=== PATIENT | male | born 1950 | race Caucasian/White ===

== ENCOUNTER 2017-02-20 15:50 | Observation (INO) ==
--- NOTE | 2017-02-20 17:46 | Emergency Department Note ---
Disposition Clinical Impression: Ulceration Cellulitis Qualifiers: Site of cellulitis: extremity Site of cellulitis of extremity: lower extremity Laterality: right Qualified Code(s): L03.115 - Cellulitis of right lower limb Disposition: Admitted As Inpatient Condition: Undetermined Time of Disposition: 19:04 Wound/Laceration HPI - General Chief Complaint: ED Wound/Laceration Stated Complaint: RLE wound Time Seen by Provider: 02/20/17 17:18 Source: patient Mode of arrival: wheelchair Limitations: no limitations Nursing Notes Reviewed: Yes Vital Signs Reviewed: Yes - History of Present Illness HPI Narrative: 66-year-old male with history of chronic wound on right lower extremity arrives [facility] emergency department after being instructed to come to [facility] emergency department for evaluation by the wound clinic. The patient states that his wound of his right lower extremity has worsened in pain as well as developed a black necrotic color to it. The patient states he is experiencing more bruising to his right lower extremity. The patient states that he does not typically feel any pain in his right lower extremity. Onset (ago): day(s) (1) Extremity Location: Right: lower leg, ankle, foot Place: home Associated symptoms: Reports: loss of feeling/numbness Pain Severity: moderate, severe Pain Scale: 6 Treatments prior to arrival: bandage - Related Data Home Medications Medication Instructions Recorded Confirmed No Known Home Drugs 02/20/17 02/20/17 Allergies Allergy/AdvReac Type Severity Reaction Status Date / Time cephalexin [From Keflex] AdvReac See Verified 02/08/17 08:23 Comments All systems ED: reviewed and negative except as stated. Constitutional: Denies: fever, chills, weakness, weight change Cardiovascular: Denies: chest pain, palpitations, dyspnea on exertion, edema, syncope Respiratory: Denies: cough, dyspnea, wheezes, hemoptysis, stridor Gastrointestinal: Denies: abdominal pain, nausea, vomiting, diarrhea, constipation, hematemesis, melena, hematochezia Genitourinary: Denies: urgency, dysuria, frequency, hematuria Musculoskeletal: Denies: back pain, neck pain, arthralgia, myalgia Integumentary: Reports: lesions (Right ankle). Denies: rash, abrasion Neurological: Denies: headache, weakness, numbness, paresthesias, confusion, abnormal gait, vertigo Past Medical History - Past Medical History Attestation: Yes The following information was validated with the patient. Source: patient Medical history: Reports: other Surgical history: Reports: orthopedic, other Psychiatric history: Reports: no psych history - Social History Smoking Status: Never smoker Smokeless Tobacco Status: Yes (chew x 40 + years) Alcohol use: Reports: none Drug use: Reports: none Physical Exam - General Limitations: no limitations General appearance: alert, in no apparent distress - Head Head exam: atraumatic, normocephalic, normal inspection - Neck Neck exam: Present: normal inspection, full ROM, trachea midline - Chest Chest inspection: Present: normal inspection, symmetric chest wall rise - Respiratory Respiratory exam: Present: normal lung sounds bilaterally - Cardiovascular Cardiovascular exam: Present: regular rate, normal rhythm, normal heart sounds - Extremities Exam Extremities exam: Present: other (6 x 11 cm chronic ulceration with granulation tissue and necrotic tissue at the base with serious and mild purulent discharge noted. Moderate erythema surrounding chronic ulceration with tenderness to the ankle associated with wound.) Course - Consultations Consultation #1: Spoke with Dr. Ricci in podiatry and recommended admission an IV vancomycin if worsening appearance. Time: 18:57 Vital Signs Temperature 98 F 02/20/17 16:03 Pulse Rate 75 02/20/17 16:03 Respiratory Rate 16 02/20/17 16:03 Blood Pressure 152/59 02/20/17 16:03 O2 Sat by Pulse Oximetry 96 02/20/17 16:03 Temperature 98.4 F 02/21/17 15:56 Pulse Rate 84 02/21/17 15:56 Respiratory Rate 18 02/21/17 15:56 Blood Pressure 137/67 02/21/17 15:56 O2 Sat by Pulse Oximetry 96 02/21/17 15:56 Oxygen Delivery Oxygen Delivery Room Air Wound/Laceration - MDM Narrative Medical decision making narrative: Experiencing worsening right lower extremity wound with worsening necrosis of discharge. After speaking with podiatry with symptoms, they recommended admission and administration of IV vancomycin if symptomatically worse. We will admit the patient at this time, accepted by Stephon Ellis NP. - Medical Records Medical records reviewed: Yes I reviewed the patient's medical records. - Lab Data Lab results reviewed: Yes I reviewed the patient's lab results. Result diagrams: 02/21/17 06:10 02/21/17 06:10 Lab Results 02/20/17 02/20/17 02/20/17 Range/Units 17:57 17:57 17:57 WBC 3.0 L (4.3-11.1) K/mcL RBC 3.52 L (4.19-5.50) M/mcL Hgb 10.2 L (12.9-16.9) g/dL Hct 32.6 L (37.5-50.1) % MCV 92.6 (83.0-100.0) fL MCH 29.0 (28.0-33.3) pg MCHC 31.3 L (31.6-35.5) g/dL RDW 15.4 H (11.5-14.5) % Plt Count 55 L (140-400) K/mcL MPV 9.7 (9.4-12.4) fL Immature Gran % 0.3 (0-4) % Seg Neutrophils % 54.6 % Lymphocytes % 30.6 % Monocytes % 10.1 % Eosinophils % 3.7 % Basophils % 0.7 % Neutrophils # 1.6 (1.6-8.9) K/mcL Lymphocytes # 0.9 (0.6-4.6) K/mcL Monocytes # 0.3 (0.0-1.3) K/mcL Eosinophils # 0.1 (0.0-0.6) K/mcL Basophils # 0.0 (0.0-0.2) K/mcL Immature Plt Fraction 1.3 (1.1-6.1) % ESR 22 H (0-10) mm/hr Sodium 139 (136-145) mEq/L Potassium 3.7 (3.5-4.5) mEq/L Chloride 109 (98-109) mEq/L Carbon Dioxide 26 (19-29) mEq/L BUN 9 (8-26) mg/dL Creatinine 0.69 L (0.72-1.25) mg/dL Est GFR ( Amer) > 60 (> 60) Est GFR (Non-Af Amer) > 60 (> 60) BUN/Creatinine Ratio 13 (6-26) Glucose 86 (70-99) mg/dL Calculated Osmolality 286 (280-300) Calcium 8.1 L (8.6-10.8) mg/dL C-Reactive Protein (Less than 5) mg/L 02/20/17 Range/Units 17:57 WBC (4.3-11.1) K/mcL RBC (4.19-5.50) M/mcL Hgb (12.9-16.9) g/dL Hct (37.5-50.1) % MCV (83.0-100.0) fL MCH (28.0-33.3) pg MCHC (31.6-35.5) g/dL RDW (11.5-14.5) % Plt Count (140-400) K/mcL MPV (9.4-12.4) fL Immature Gran % (0-4) % Seg Neutrophils % % Lymphocytes % % Monocytes % % Eosinophils % % Basophils % % Neutrophils # (1.6-8.9) K/mcL Lymphocytes # (0.6-4.6) K/mcL Monocytes # (0.0-1.3) K/mcL Eosinophils # (0.0-0.6) K/mcL Basophils # (0.0-0.2) K/mcL Immature Plt Fraction (1.1-6.1) % ESR (0-10) mm/hr Sodium (136-145) mEq/L Potassium (3.5-4.5) mEq/L Chloride (98-109) mEq/L Carbon Dioxide (19-29) mEq/L BUN (8-26) mg/dL Creatinine (0.72-1.25) mg/dL Est GFR ( Amer) (> 60) Est GFR (Non-Af Amer) (> 60) BUN/Creatinine Ratio (6-26) Glucose (70-99) mg/dL Calculated Osmolality (280-300) Calcium (8.6-10.8) mg/dL C-Reactive Protein 10 H (Less than 5) mg/L - Radiology Data Radiology results reviewed: Yes I reviewed the patient's radiology results. Attestation Statement - Attestation Attestation: I, Dallin Hernandez, examined this patient and my medical decision-making was reviewed with the BOILER [employer]END[employer] SUPERVISOR/PA/Advanced Practice Nurse/Resident Physician. I agree with the documented findings, disposition and treatment plan as described except to the extent set forth below. 66-year-old male presents to emergency department with acute worsening of his chronic lower extremity wound. Patient states he is not emergency department by the wound clinic for further evaluation and likely admission. Patient states that it has increased warmth, erythema and a foul smell coming from the wound. He also noticed that it had drainage of yellow green discharge. CT of the extremity did not show evidence of osteomyelitis. Resident spoke with the oss architect who agreed with plan for admission to the hospital. He was started on antibiotics in the emergency department.
[2017-02-20 18:05] LABS: Basophils % 0.7 %; Immature Granulocytes % 0.3 % (0-4)
[2017-02-20 18:07] LABS: Eosinophils # 0.1 K/mcL (0.0-0.6); Eosinophils % 3.7 %; Hematocrit 32.6 % (37.5-50.1); Hemoglobin 10.2 g/dL (12.9-16.9); Immature Platelets 1.3 % (1.1-6.1); Lymphocytes # 0.9 K/mcL (0.6-4.6); Lymphocytes % 30.6 %; Mean Corpuscular HGB Conc 31.3 g/dL (31.6-35.5); Mean Corpuscular Volume 92.6 fL (83.0-100.0); Mean Platelet Volume 9.7 fL (9.4-12.4); Monocytes # 0.3 K/mcL (0.0-1.3); Monocytes % 10.1 %; Neutrophils # 1.6 K/mcL (1.6-8.9); Red Blood Count 3.52 M/mcL (4.19-5.50); Red Cell Distribution Width 15.4 % (11.5-14.5); Segmented Neutrophils % 54.6 %
[2017-02-20 18:14] LABS: Platelet Count 55 K/mcL (140-400)
[2017-02-20 18:16] LABS: BUN/Creatinine Ratio 13 (6-26); Blood Urea Nitrogen 9 mg/dL (8-26); Calcium 8.1 mg/dL (8.6-10.8); Carbon Dioxide 26 mEq/L (19-29); Chloride 109 mEq/L (98-109); Glucose 86 mg/dL (70-99); Osmolality,Calculated 286 (280-300); Potassium 3.7 mEq/L (3.5-4.5); Sodium 139 mEq/L (136-145); eGFR For African Americans > 60 (> 60); eGFR For Non-African Americans > 60 (> 60)
[2017-02-20] MEDS ORDERED: Vancomycin 1,000 MG in D5% in Water 250 ML IVPB ONE (18:51)
[2017-02-20] MEDS ORDERED: *HR* Morphine 2 MG/ML SYRINGE IVP PRN (23:08)
[2017-02-20] MEDS ORDERED: *HR* HYDROcodone/Acet 5/325 mg TABLET PO PRN (23:08)
[2017-02-20] MEDS ORDERED: Ondansetron 4 MG/2 ML VIAL IVP PRN (23:08)
[2017-02-20] MEDS ORDERED: Naloxone 0.4 MG/ML INJ IVP PRN (23:08)
--- NOTE | 2017-02-20 23:39 | Internal Med History&Physical ---
Date of Encounter: 02/20/17 Time of Encounter: 22:50 Assessment and Plan (1) Cellulitis Current visit: Yes Status: Acute RLE infected ulcer will start with empiric IV abx (vanco and zosyn) podiatry consultation requested daily wound care f/u culture reports pain control as needed Qualifiers: Site of cellulitis: extremity Site of cellulitis of extremity: lower extremity Laterality: right Qualified Code(s): L03.115 - Cellulitis of right lower limb (2) Chronic venous hypertension with ulcer Current visit: Yes Status: Chronic will obtain KACEY studies given the recurrent ulcers and poor healing Qualifiers: Laterality: bilateral Qualified Code(s): I87.313 - Chronic venous hypertension (idiopathic) with ulcer of bilateral lower extremity (3) DVT prophylaxis Current visit: Yes Status: Acute Heparin SQ (4) Morbid obesity Current visit: Yes Status: Chronic Internal Medicine - H&P: HPI Chief complaint: sent from wound care clinic for infected right ankle wound Admitted From: Home Plans for Post Hospital Care: Home History of present illness: Mr. Landaverde is a 66 year old male with PMH of chronic venous stasis who is sent to the ER from wound care clinic for concern for infected RLE ulcer. Patient reports of having b/l LE edema since the age of 17. He follows with Dr. Grayson for this chronic right distal leg/ankle ulcer and states lately it has been hurting and he was sent to the ER from wound care clinic. Denies any other medical history and does not take any medications at home. At this time he denies any pain or discomfort. Denies any pain, fever, or chills Social history: Chews Tobacco, no cigarette use reported Code status: Full code Past Med Surg Social Fam HX - Past Medical History Medical history: venous stasis Psychiatric history: no psych history - Past Surgical History Surgical History: orthopedic, other - Social History Smoking Status: Never smoker Smokeless Tobacco Status: Yes (chew x 40 + years) Alcohol use: none Drug use: none - Family History Father Living Status: Hx Family Cancer: Yes (lung) Hx Family Neurologic Disorders: Yes (epilepsy) Internal Medicine - H&P: Meds No Known Home Drugs 02/20/17 [History] 3 Allergy/AdvReac Type Severity Reaction Status Date / Time cephalexin [From Keflex] AdvReac See Verified 02/08/17 08:23 Comments All Systems PM: A 10-system review of systems was performed and is negative for pertinent findings except as documented above in the HPI. - Constitutional Constitutional: as per HPI - Constitutional Vitals: Temp Pulse Resp BP Pulse Ox 97.7 F 77 14 137/69 98 02/20/17 23:21 02/20/17 23:21 02/20/17 23:21 02/20/17 23:21 02/20/17 23:21 General appearance: Present: A&O X 3, morbidly obese, no acute distress, answers questions appropriately - Head Head exam: Present: atraumatic, normocephalic - Eye Eye exam: Present: conjuntiva pink, sclera anicteric - Respiratory Respiratory exam: Present: CTAB. Absent: respiratory distress, wheezes - Cardiovascular Cardiovascular exam: Present: RRR, +S1, +S2. Absent: diastolic murmur, gallop, rubs, systolic murmur - GI/Abdominal GI/Abdominal exam: Present: normal bowel sounds, soft, no peritoneal signs. Absent: distended, tenderness - Extremities Exam Extremities exam: Present: warm, radial pulses palpable and symmetrical. Absent : calf tenderness Additional comments: b/l LE edema chronic venous stasis in b/l LE right ankle ulcer-dressing intact - Neurological Exam Neurological exam: Present: alert, oriented X3 - Psychiatric Psychiatric exam: Present: normal affect, normal mood Internal Med - H&P Results - Labs CBC & Chem 7: 02/20/17 17:57 02/20/17 17:57
[2017-02-21] MEDS ORDERED: Vancomycin 1,000 MG in D5% in Water 250 ML IVPB ONE
[2017-02-21] MEDS: Piperacillin/Tazobactam 3.375 GM in D5% in Water (Mini-Bag+) 100 ML IVPB SCH ×3 (00:38→16:09)
[2017-02-21] MEDS ORDERED: *HR* Heparin 5,000 UNIT/ML VIAL SQ SCH (06:00)
[2017-02-21] MEDS ORDERED: Vancomycin 1,000 MG in D5% in Water 250 ML IVPB SCH (06:00)
[2017-02-21 06:43] LABS: BUN/Creatinine Ratio 13 (6-26); Blood Urea Nitrogen 9 mg/dL (8-26); Carbon Dioxide 25 mEq/L (19-29); Chloride 109 mEq/L (98-109); Glucose 101 mg/dL (70-99); Magnesium 1.6 mg/dL (1.6-2.6); Osmolality,Calculated 289 (280-300); Phosphorous 2.7 mg/dL (2.3-4.7); Potassium 4.1 mEq/L (3.5-4.5); Sodium 140 mEq/L (136-145); eGFR For African Americans > 60 (> 60); eGFR For Non-African Americans > 60 (> 60)
[2017-02-21 06:48] LABS: Basophils % 0.8 %; Red Cell Distribution Width 15.6 % (11.5-14.5)
[2017-02-21 06:50] LABS: Eosinophils # 0.1 K/mcL (0.0-0.6); Eosinophils % 4.5 %; Hemoglobin 10.1 g/dL (12.9-16.9); Immature Platelets 1.6 % (1.1-6.1); Lymphocytes % 35.8 %; Mean Corpuscular HGB Conc 32.6 g/dL (31.6-35.5); Mean Corpuscular Hemoglobin 30.1 pg (28.0-33.3); Mean Corpuscular Volume 92.5 fL (83.0-100.0); Mean Platelet Volume 10.3 fL (9.4-12.4); Monocytes # 0.3 K/mcL (0.0-1.3); Monocytes % 12.5 %; Red Blood Count 3.35 M/mcL (4.19-5.50); Segmented Neutrophils % 46.4 %
[2017-02-21 07:16] LABS: Neutrophils # 1.3 K/mcL (1.6-8.9); Platelet Count 57 K/mcL (140-400)
[2017-02-21] MEDS ORDERED: Vancomycin 2,000 MG in D5% in Water 500 ML IVPB SCH (12:00)
--- NOTE | 2017-02-21 15:37 | Internal Med Progress Note ---
Date of Encounter: 02/21/17 Time of Encounter: 15:46 - Assessment and plan (1) Cellulitis Current Visit: Yes Status: Acute Assessment and plan: Hx chronic bilateral lymphedema since the age of 17 and now with chronic nonhealing right lower extremity venous stasis ulcer. Was sent to ER from wound care clinic for concern of cellulitis to right lower leg. Lower extremity CT with diffuse, severe edema of right lower leg concerning for chronic cellulitis or lymphedema. Continue IV Vanco, Zosyn started in ED. Wound cx pending. Podiatry consulted. Bilateral lower extreme Dopplers pending. Qualifiers: Site of cellulitis: extremity Site of cellulitis of extremity: lower extremity Laterality: right Qualified Code(s): L03.115 - Cellulitis of right lower limb (2) Chronic venous hypertension with ulcer Current Visit: Yes Status: Chronic Assessment and plan: Per history. Follows with Dr. Grayson. Lower extremity CT as noted above. Bilateral KACEY studies pending. Qualifiers: Laterality: bilateral Qualified Code(s): I87.313 - Chronic venous hypertension (idiopathic) with ulcer of bilateral lower extremity (3) Pancytopenia Current Visit: Yes Status: Acute Assessment and plan: With leukopenia, anemia and thrombocytopenia. No previous history per patient. Etiology unknown. Repeat CBC, peripheral blood smear (4) Morbid obesity Current Visit: Yes Status: Chronic Assessment and plan: per hx. BMI 47. Lifestyle modifications encouraged. Hgb A1c, lipid panel pending (5) DVT prophylaxis Current Visit: Yes Status: Acute - Subjective Interval history: Seen and examined at bedside. He says he feels about the same. Says right lower leg was depleted at cook morning office on Monday, he went back for follow- up yesterday and there was no change so he was advised to go to the ER. No fevers, no chills. Denies chest pain no shortness of breath. - Constitutional Vitals: Temp Pulse Resp BP Pulse Ox 98.1 F 72 17 154/63 96 02/21/17 08:43 02/21/17 08:43 02/21/17 08:43 02/21/17 08:43 02/21/17 10:29 General appearance: Present: A&O X 3, morbidly obese, no acute distress, answers questions appropriately - Head Head exam: Present: atraumatic, normocephalic - Eye Eye exam: Present: PERRL, conjuntiva pink, sclera anicteric Pupils: Present: PERRL - Neck Neck exam general surgery: Present: supple, trachea midline. Absent: lymphadenopathy - Respiratory Respiratory exam: Present: CTAB. Absent: accessory muscle use, rales, rhonchi, wheezes - Cardiovascular Cardiovascular exam: Present: RRR, +S1, +S2. Absent: diastolic murmur, gallop, rubs, systolic murmur - GI/Abdominal GI/Abdominal exam: Present: normal bowel sounds, soft, no peritoneal signs. Absent: distended, tenderness - Extremities Exam Extremities exam: Present: pedal edema, warm, radial pulses palpable and symmetrical. Absent: calf tenderness, cyanotic Additional comments: Bilateral lower extremity with gross/lymphedema. And purplish discoloration. Right lower extremity with wound (area dressed with dressing clean dry and intact, not assessed) - Neurological Exam Neurological exam: Present: CN II-XII intact, oriented X3, no focal deficits. Absent: pronater drift, facial droop, speech deficit - Skin Skin exam: Present: dry, intact Internal Medicine: Result - Labs CBC & Chem 7: 02/21/17 06:10 02/21/17 06:10 Labs: Short CBC 02/21/17 Range/Units 06:10 WBC 2.7 L (4.3-11.1) K/mcL Hgb 10.1 L (12.9-16.9) g/dL Hct 31.0 L (37.5-50.1) % Plt Count 57 L (140-400) K/mcL Neutrophils # 1.3 L (1.6-8.9) K/mcL BMP 02/21/17 06:10 Sodium 140 Potassium 4.1 Chloride 109 Carbon Dioxide 25 BUN 9 Creatinine 0.72 Glucose 101 H Calcium 8.0 L Consult Discharge Plan - Plan Referrals: NONE,PCP [Primary Care Provider] -
--- NOTE | 2017-02-21 15:53 | Arterial Study Report ---
LE Arterial Physiologic Study Patient Name:Meliton Landaverde Order Number:[id number] Procedure Date:02/21/2017 Date:1950ge:66 yrs Gender:Male Lt BP:122 / mmHg Rt.BP:112 / mmHgHeart Rate: Location:[facility] Room #: 3A42 Multimedia Author:Marissa Wallace RDCS Referring MD:Natalya Ring MD Reading MD:Lamont Waite MD , FACS Primary Indications:r/o PVD Impressions: 1) Bilateral lower extremities waveform demonstrates normal hemodynamics. 2) Bilateral Ankle Brachial Index is normal. 3) Overall Impression: Arterial hemodynamics are well maintained at rest. Findings LE Arterial Physiologic Exam: PVR: Right: The PVR waveforms are normal in the right ankle. Left: The PVR waveforms are normal in the left ankle. Prior Study: No prior study available for comparison. Segmental Pressures Side Location Pressure Index Result Right Posterior Tibial 160 1.31 Normal Right Dorsalis Pedis 152 1.25 Normal Left Posterior Tibial 138 1.13 Normal Left Dorsalis Pedis 152 1.25 Normal Ankle Brachial Index Right Systolic Diastolic KACEY Brachial 112 1.31 Dorsalis Pedis 152 1.25 Posterior Tibial 160 1.31 Left Systolic Diastolic KACEY Brachial 122 1.25 Dorsalis Pedis 152 1.25 Posterior Tibial 138 1.13 Updated by Lamont Waite MD, FACS on 02/21/2017 3:47:29 PM with Status of Final Lamont Watie MD electronically signed on 02/21/2017 3:47:48 PM with status of Final
--- NOTE | 2017-02-21 16:01 | Podiatry Consult Note ---
Date of Encounter: 02/21/17 Time of Encounter: 12:00 Assessment and Plan (1) Idiopathic chronic venous HTN of right leg with ulcer and inflammation Current visit: No Status: Acute Continue elevation of extremity Please apply VENESSA wrap for compression and to decrease edema. (2) Ulceration Current visit: Yes Status: Acute Assessment: Chronic venous ulcer Plan: Assessment and measurements obtained at bedside Wound cultures obtained Maxsorb AG, 4x4 and kerlex applied at this time. Will write for BID and PRN changes of dressing. Wound is draining a moderate amount of serous fluid. please do not allow dressings to become saturated Apply venessa wrap for compression Elevate extremity Will possibly consider VAC re-placement tomorrow- patient has already been undergoing vac therapy Very minimal clinical concern of ischemia to wound. (3) Cellulitis Current visit: Yes Status: Acute There is an absence of white count. CT demonstrates shallow soft tissue ulceration along the posteromedial aspect of the ankle/distal lower leg as seen on ankle CT from 02/17/2017. This is unchanged from previous exam. No specific radiographic evidence of osteomyelitis. Will obtain wound cultures at bedside today. Will continue local wound care of ulceration. No need for formal debridement at this time May consider reapplication of wound vac pending clinical picture tomorrow. Continue current antibiotic therapy at this time, please continue to monitor renal function. Short CBC 02/21/17 02/20/17 Range/Units 06:10 17:57 WBC 2.7 L 3.0 L (4.3-11.1) K/mcL Hgb 10.1 L 10.2 L (12.9-16.9) g/dL Hct 31.0 L 32.6 L (37.5-50.1) % Plt Count 57 L 55 L (140-400) K/mcL Neutrophils # 1.3 L 1.6 (1.6-8.9) K/mcL BMP 02/21/17 02/20/17 Range/Units 06:10 17:57 Sodium 140 139 (136-145) mEq/L Potassium 4.1 3.7 (3.5-4.5) mEq/L Chloride 109 109 (98-109) mEq/L Carbon Dioxide 25 26 (19-29) mEq/L BUN 9 9 (8-26) mg/dL Creatinine 0.72 0.69 L (0.72-1.25) mg/dL Glucose 101 H 86 (70-99) mg/dL Calcium 8.0 L 8.1 L (8.6-10.8) mg/dL Lower Extremity CT 02/20/17 17:45 IMPRESSION: Diffuse severe edema of the subcutaneous fat of the right lower leg with skin thickening and fluid suggesting chronic cellulitis versus lymphedema. No evidence of focal drainable abscess. Shallow soft tissue ulceration along the posteromedial aspect of the ankle/distal lower leg as seen on ankle CT from 02/17/2017. No significant change. No specific radiographic evidence of osteomyelitis. Sequela of remote trauma of the distal tibia and fibula. Subtle sclerosis along the medial corner of the talar dome as seen on ankle CT suggesting possible subchondral insufficiency fracture, AVN versus degenerative changes. No change since prior. D/ / 02/20/2017 18:44:37 Rupert Sylvester MD / isadora Interpreting Provider: Rupert Sylvester MD Qualifiers: Site of cellulitis: extremity Site of cellulitis of extremity: lower extremity Laterality: right Qualified Code(s): L03.115 - Cellulitis of right lower limb History of Present Illness HPI: Mr. Landaverde is a 66 year old male who was admitted to [facility] for evaluation of a right lower extremity wound. Patient was seen in wound care clinic per on 02/09. Patient has a 40 year history of peripheral edema, venous insufficiency , and stasis dermatitis. Patient has a chronic wound of medial right lower leg. Patient states that 1 week ago a wound vac was applied to wound. Patient states that on monday when he went in for it to be changed they told him " the wound was black and possibly did not have blood flow and he needed to be seen" patient also states he has had more swelling to the right leg than normal but states he fell asleep in his chair with his legs down the 2 nights previous. Patient states that the vac was removed and he was sent to [facility] with a dry dressing. Patient denies any pain to wound. Patient denies any fevers, chills, n /v or flu like symptoms. A wound specimen was obtained per on 02/06 and sent for pathology, this was negative. Patient is currently receiving empiric vancomycin and zosyn for suspicion of cellulitis. Past Med Surg Social Fam HX - Past Medical History Medical history: venous stasis Psychiatric history: no psych history - Past Surgical History Surgical History: orthopedic, other - Social History Smoking Status: Never smoker Smokeless Tobacco Status: Yes (chew x 40 + years) Alcohol use: none Drug use: none - Family History Father Living Status: Hx Family Cancer: Yes (lung) Hx Family Neurologic Disorders: Yes (epilepsy) Medications and Allergies No Known Home Drugs 02/20/17 [History] 3 Allergy/AdvReac Type Severity Reaction Status Date / Time cephalexin [From Keflex] AdvReac See Verified 02/08/17 08:23 Comments All Systems Reviewed: A 10-system review of systems was performed and is negative for pertinent findings except as documented above in the HPI. Physical Exam - Constitutional Vitals: Temp Pulse Resp BP Pulse Ox 98.1 F 72 17 154/63 96 02/21/17 08:43 02/21/17 08:43 02/21/17 08:43 02/21/17 08:43 02/21/17 10:29 Exam: General Examination: CONSTITUTIONAL: Alert, oriented, in no acute distress, non-toxic. EXTREMITIES: CFT 3 seconds all toes. Edema +3, diffuse lymphedema and stasis dermatits. pedal pulses easily palpable. NEUROLOGIC: Loss of protective sensation noted to BLE ULCER: There is a chronic venous ulceration to the medial aspect of the RLE. Wound margins are irregular and measure approximately [id number] depth. There is serous to serosang drainage. There is no noted undermining or sinus tracts. There is very mild surrounding erythema. No noted warmth. No streaking. No tenderness. There are no noted areas of fluctuance. There are not notable areas of suspected ischemia. Results - Labs Result Diagrams: 02/21/17 06:10 02/21/17 06:10 Labs: Abnormal lab results WBC 2.7 K/mcL (4.3-11.1) L 02/21/17 06:10 RBC 3.35 M/mcL (4.19-5.50) L 02/21/17 06:10 Hgb 10.1 g/dL (12.9-16.9) L 02/21/17 06:10 Hct 31.0 % (37.5-50.1) L 02/21/17 06:10 RDW 15.6 % (11.5-14.5) H 02/21/17 06:10 Plt Count 57 K/mcL (140-400) L 02/21/17 06:10 Neutrophils # 1.3 K/mcL (1.6-8.9) L 02/21/17 06:10 ESR 22 mm/hr (0-10) H 02/20/17 17:57 Glucose 101 mg/dL (70-99) H 02/21/17 06:10 Calcium 8.0 mg/dL (8.6-10.8) L 02/21/17 06:10 C-Reactive Protein 10 mg/L (Less than 5) H 02/20/17 17:57 H & H 02/21/17 Range/Units 06:10 Hgb 10.1 L (12.9-16.9) g/dL Hct 31.0 L (37.5-50.1) % All other labs normal. Consult Discharge Plan - Plan Referrals: NONE,PCP [Primary Care Provider] -
[2017-02-22] MEDS: Vancomycin 1,500 MG in D5% in Water 250 ML IVPB SCH ×2 (00:29→13:14)
[2017-02-22] MEDS: Piperacillin/Tazobactam 3.375 GM in D5% in Water (Mini-Bag+) 100 ML IVPB SCH ×2 (00:29→08:15)
[2017-02-22 05:57] LABS: Hemoglobin 9.3 g/dL (12.9-16.9); Red Blood Count 3.21 M/mcL (4.19-5.50)
[2017-02-22 05:58] LABS: Hematocrit 29.3 % (37.5-50.1); Immature Platelets 1.3 % (1.1-6.1); Mean Corpuscular HGB Conc 31.7 g/dL (31.6-35.5); Mean Corpuscular Volume 91.3 fL (83.0-100.0); Mean Platelet Volume 9.3 fL (9.4-12.4); Red Cell Distribution Width 15.4 % (11.5-14.5)
[2017-02-22 06:17] LABS: Alanine Aminotransferase 19 Units/L (0-55); Albumin 2.3 g/dL (3.5-5.0); Albumin/Globulin Ratio 0.7 (1.1-2.2); Alkaline Phosphatase 112 Units/L (38-126); Aspartate Amino Transferase 40 Units/L (5-34); BUN/Creatinine Ratio 13 (6-26); Blood Urea Nitrogen 9 mg/dL (8-26); Calcium 7.8 mg/dL (8.6-10.8); Carbon Dioxide 25 mEq/L (19-29); Chloride 110 mEq/L (98-109); Globulin 3.4 g/dL (2.4-3.5); Glucose 97 mg/dL (70-99); Osmolality,Calculated 285 (280-300); Sodium 138 mEq/L (136-145); Total Protein 5.7 g/dL (6.0-8.3); eGFR For African Americans > 60 (> 60); eGFR For Non-African Americans > 60 (> 60)
[2017-02-22 06:42] LABS: Bilirubin,Total 1.4 mg/dL (0.2-1.2)
[2017-02-22 08:43] LABS: Immature Reticulocyte % 12.5 % (11.0-38.0); Retculocyte # 0.07 M/mcL (0.05-0.10); Reticulocyte % 2.1 % (1.6-2.8)
[2017-02-22 08:45] LABS: INR 1.3; Prothrombin Time 14.3 Seconds (9.4-12.1)
[2017-02-22 11:19] LABS: % Iron Saturation 54 % (20-55); Iron 106 mcg/dL (65-175); Lactate Dehydrogenase 214 Units/L (159-327); Transferrin 140 mg/dL (174-364)
--- NOTE | 2017-02-22 14:31 | Discharge Summary ---
Date of Encounter: 02/22/17 Time of Encounter: 14:28 - Discharge Diagnosis (1) Cellulitis Priority: Primary Status: Acute Comments: Meliton Landaverde is a 66-year-old male with past medical history bilateral lymphedema and chronic right lower extremity wound who presented to [facility] on 02/20 from wound care clinic with concern for right lower leg cellulitis. He was treated with IV ATB and evaluated by podiatry who placed wound VAC prior to discharge. He was incidentally found to be pancytopenic; he declined inpatient workup. He was discharged home in stable condition with outpatient podiatry and hematology follow-up Cellulitis: chronic bilateral lymphedema since the age of 17 and now with chronic nonhealing right lower extremity venous stasis ulcer. Was sent to ER from wound care clinic for concern of cellulitis to right lower leg. Lower extremity CT with diffuse, severe edema of right lower leg concerning for chronic cellulitis or lymphedema. Bilateral lower extreme Dopplers pending. Wound culture ordered but not obtained. He was treated with IV Vanco, Zosyn on arrival. Wound VAC palced to right leg per podiatry. ATB de-escalated to Bactrim per podiatry recommendations. Will need to follow-up with podiatry/ wound care clinic outpatient. Qualifiers: Site of cellulitis: extremity Site of cellulitis of extremity: lower extremity Laterality: right Qualified Code(s): L03.115 - Cellulitis of right lower limb (2) Chronic venous hypertension with ulcer Priority: Primary Status: Chronic Comments: Per history. Follows with Dr. Grayson. Lower extremity CT as noted above. Bilateral KACEY studies normal. Continue outpatient follow-up as previously planned. Qualifiers: Laterality: bilateral Qualified Code(s): I87.313 - Chronic venous hypertension (idiopathic) with ulcer of bilateral lower extremity (3) Pancytopenia Priority: Primary Status: Acute Comments: With leukopenia, anemia and thrombocytopenia. No previous history per patient however patient does report prolonged bleeding time and easy bruising since childhood. Etiology unknown. Recommended inpatient hematology evaluation however patient declined but he is agreeable to outpatient follow-up. Iron studies, vitamin B12/folate, LDH, haptoglobin, peripheral blood smear pending at time of discharge. Will need to follow up outpatient with hematology. (4) Morbid obesity Priority: Primary Status: Chronic Comments: per hx. BMI 47. Lifestyle modifications encouraged. - Discharge Medications Prescriptions: Sulfamethoxazole/Trimeth DS [Bactrim DS] 1 each PO BID #20 tablet Home Medications: Sulfamethoxazole/Trimeth DS [Bactrim DS] 1 each PO BID #20 tablet 02/22/17 [Rx] Allergies/Adverse Reactions: 3 Allergy/AdvReac Type Severity Reaction Status Date / Time cephalexin [From Keflex] AdvReac See Verified 02/08/17 08:23 Comments Procedures/tests Complete & Pending: Procedures Performed prior 72 hours Category Date Time Status EV ankle brachial index Stat Y 02/21/17 23:11 Completed Venous Doppler [EV venous imaging LE BI] Stat Y 02/21/17 12:20 Completed Date of admission: 02/20/17 19:44 Primary care physician: PCP NONE Consults: 02/20/17 23:10 Consult to Podiatry [CONS] Routine Consulting Provider: [facility] Reason for Consult: right ankle wound Call Completed: Yes Discharging clinician: Day Sesay Anticipated date of discharge: 02/22/17 - Patient Status Disposition: Home Health Service Condition: Good Functional capacity at discharge: independent ambulation Overall status at discharge: patient is back to baseline - Discharge Instructions Follow Up With: [facility] [Other] - 02/24/17 3:30 pm Donal Brown MD [Non-Partnered Physician] - NONE,PCP [Primary Care Provider] - - Diet and Activity Activity: increase activity as tolerated Diet: advance to your usual diet Interval History: seen and examined at bedside, he says he feels fine and wants to go home. Discussed with him the possibility of hematology consult and patient to workup his pancytopenia however he refuses. He is concerned about the financial cost of an extra night in the hospital. He says he will follow up outpatient. He has no pain, no fevers, no chills. Awaiting wound VAC placement and discharge home. Hospital course: Mr. Landaverde is a 66 year old male - Time Spent with Patient Total time spent providing and/or coordinating discharge services: - Constitutional Vitals: Temp Pulse Resp BP Pulse Ox 97.9 F 72 16 123/56 95 02/22/17 11:16 02/22/17 11:16 02/22/17 11:16 02/22/17 11:16 02/22/17 11:16 General appearance: Present: A&O X 3, morbidly obese, no acute distress, answers questions appropriately - Head Head exam: Present: atraumatic, normocephalic - Eye Eye exam: Present: PERRL, conjuntiva pink, sclera anicteric Pupils: Present: PERRL - Neck Neck exam general surgery: Present: supple, trachea midline. Absent: lymphadenopathy - Respiratory Respiratory exam: Present: CTAB. Absent: accessory muscle use, rales, rhonchi, wheezes - Cardiovascular Cardiovascular exam: Present: RRR, +S1, +S2. Absent: diastolic murmur, gallop, rubs, systolic murmur - GI/Abdominal GI/Abdominal exam: Present: normal bowel sounds, soft, no peritoneal signs. Absent: distended, tenderness - Extremities Exam Extremities exam: Present: pedal edema, warm, radial pulses palpable and symmetrical. Absent: calf tenderness, cyanotic Additional comments: Bilateral lower [place]'s with gross lymphedema, right greater than left. Dressing to right lower leg clean dry and intact. Area not assessed - Neurological Exam Neurological exam: Present: CN II-XII intact, oriented X3, no focal deficits. Absent: pronater drift, facial droop, speech deficit - Skin Skin exam: Present: dry, intact
[2017-02-22 14:58] VITALS: BP 125/61
--- NOTE | 2017-02-22 15:59 | Podiatry Progress Note ---
Date of Encounter: 02/22/17 Time of Encounter: 15:00 - Assessment and Plan (1) Idiopathic chronic venous HTN of right leg with ulcer and inflammation Current Visit: No Status: Acute Continue elevation of extremity Please apply VENESSA wrap for compression and to decrease edema. (2) Ulceration Current Visit: Yes Status: Acute Assessment: Chronic venous ulcer Plan: Plan for discharge today Reapply wound vac prior to discharge- medium black simplace sponge- low cont suction MWF changes as already ordered No need for IV antibiotic therapy Patient has low white count 2.4 but due to pancytopenia and possible inaccuracy or hidden elevation will send on PO Bactrim DS BID for 10 days Patient had blood cultures obtained and wound cultures and are negative to date however not finalized. Patient to follow up in wound care clinic next monday. Patient had ABIs which were normal Continue to monitor, call with any issues (3) Cellulitis Current Visit: Yes Status: Acute There is an absence of white count. CT demonstrates shallow soft tissue ulceration along the posteromedial aspect of the ankle/distal lower leg as seen on ankle CT from 02/17/2017. This is unchanged from previous exam. No specific radiographic evidence of osteomyelitis. Will obtain wound cultures at bedside today. Will continue local wound care of ulceration. No need for formal debridement at this time May consider reapplication of wound vac pending clinical picture tomorrow. Continue current antibiotic therapy at this time, please continue to monitor renal function. Short CBC 02/21/17 02/20/17 Range/Units 06:10 17:57 WBC 2.7 L 3.0 L (4.3-11.1) K/mcL Hgb 10.1 L 10.2 L (12.9-16.9) g/dL Hct 31.0 L 32.6 L (37.5-50.1) % Plt Count 57 L 55 L (140-400) K/mcL Neutrophils # 1.3 L 1.6 (1.6-8.9) K/mcL BMP 02/21/17 02/20/17 Range/Units 06:10 17:57 Sodium 140 139 (136-145) mEq/L Potassium 4.1 3.7 (3.5-4.5) mEq/L Chloride 109 109 (98-109) mEq/L Carbon Dioxide 25 26 (19-29) mEq/L BUN 9 9 (8-26) mg/dL Creatinine 0.72 0.69 L (0.72-1.25) mg/dL Glucose 101 H 86 (70-99) mg/dL Calcium 8.0 L 8.1 L (8.6-10.8) mg/dL Lower Extremity CT 02/20/17 17:45 IMPRESSION: Diffuse severe edema of the subcutaneous fat of the right lower leg with skin thickening and fluid suggesting chronic cellulitis versus lymphedema. No evidence of focal drainable abscess. Shallow soft tissue ulceration along the posteromedial aspect of the ankle/distal lower leg as seen on ankle CT from 02/17/2017. No significant change. No specific radiographic evidence of osteomyelitis. Sequela of remote trauma of the distal tibia and fibula. Subtle sclerosis along the medial corner of the talar dome as seen on ankle CT suggesting possible subchondral insufficiency fracture, AVN versus degenerative changes. No change since prior. D/ / 02/20/2017 18:44:37 Rupert Sylvester MD / isadora Interpreting Provider: Rupert Sylvester MD Qualifiers: Site of cellulitis: extremity Site of cellulitis of extremity: lower extremity Laterality: right Qualified Code(s): L03.115 - Cellulitis of right lower limb Subjective Interval history: Patient admitted for concerning chronic ulceration of medial aspect of right lower leg. Patient is currently undergoing antibiotic therapy for possible cellulitis. Patient ABIs were checked and found to be normal, no concern of wound ischemia. Patient resting comfortably, denies issues or concerns. Plan for discharge today. Objective - Vital Signs Vital Signs: Vital Signs Temp Pulse Resp BP Pulse Ox 02/22/17 14:58 97.8 F 77 20 125/61 97 02/22/17 11:16 97.9 F 72 16 123/56 95 02/22/17 07:00 97.6 F 66 14 103/52 95 02/22/17 04:09 98.4 F 71 16 121/61 95 02/21/17 20:26 98.4 F 81 16 115/62 96 02/21/17 15:56 98.4 F 84 18 137/67 96 Intake and Output 02/21/17 02/22/17 02/22/17 23:59 07:59 15:59 Intake Total 100 / 100 350 / 350 120 / 120 Output Total 250 / 250 550 / 550 600 / 600 Balance -150 / -150 -200 / -200 -480 / -480 Intake: IV Fluids 100 / 100 350 / 350 Zosyn 3.375 GM In Dextrose 5% ( 100 / 100 100 / 100 Minibag+) 100 ML 100 ML @ 25 mls/hr IVPB Q8HR [facility] Rx#: [id number] Vancocin 1,500 MG In Dextrose 5 250 / 250 % 250 ML @ 166.667 mls/hr IVPB Q12H [facility] Rx#:[id number] Oral 0 / 0 0 / 0 120 / 120 Output: Urine 250 / 250 550 / 550 600 / 600 Other: Meal Lunch Percent of Meal Consumed 100% # Voids 1 Weight 162.3 kg Patient Weight 02/22/17 23:59 Weight 162.3 kg - Exam Exam: Patient awake, alert and oriented Dry dressing in place, no need to change at this time Nursing staff to place wound vac prior to discharge Patient will follow up in wound care clinic on Monday for vac change and reassessment Pulses palpable Edema 2+/4 Lymphedema -chronic - Lab Result Diagrams: 02/22/17 05:34 02/22/17 05:34 Labs: Abnormal lab results WBC 2.2 K/mcL (4.3-11.1) L 02/22/17 05:34 RBC 3.21 M/mcL (4.19-5.50) L 02/22/17 05:34 Hgb 9.3 g/dL (12.9-16.9) L 02/22/17 05:34 Hct 29.3 % (37.5-50.1) L 02/22/17 05:34 RDW 15.4 % (11.5-14.5) H 02/22/17 05:34 Plt Count 53 K/mcL (140-400) L 02/22/17 05:34 MPV 9.3 fL (9.4-12.4) L 02/22/17 05:34 Neutrophils # 1.3 K/mcL (1.6-8.9) L 02/21/17 06:10 ESR 22 mm/hr (0-10) H 02/20/17 17:57 Retic Hgb Equivalent 36.4 pg (28.61-36.33) H 02/22/17 08:32 PT 14.3 Seconds (9.4-12.1) H 02/22/17 08:32 Chloride 110 mEq/L (98-109) H 02/22/17 05:34 Creatinine 0.71 mg/dL (0.72-1.25) L 02/22/17 05:34 Calcium 7.8 mg/dL (8.6-10.8) L 02/22/17 05:34 Transferrin 140 mg/dL (174-364) L 02/22/17 08:32 Total Bilirubin 1.4 mg/dL (0.2-1.2) H 02/22/17 05:34 AST 40 Units/L (5-34) H 02/22/17 05:34 C-Reactive Protein 10 mg/L (Less than 5) H 02/20/17 17:57 Serum Total Protein 5.7 g/dL (6.0-8.3) L 02/22/17 05:34 Albumin 2.3 g/dL (3.5-5.0) L 02/22/17 05:34 Albumin/Globulin Ratio 0.7 (1.1-2.2) L 02/22/17 05:34 Vitamin B12 892 pg/mL (213-816) H 02/22/17 08:32 Folate 5.0 ng/mL (7.0-31.4) L 02/22/17 08:32 Microbiology, Last 48 Hours 02/21/17 13:00 Wound Culture - Preliminary Right Leg Staphylococcus aureus Proteus mirabilis Consult Discharge Plan - Plan Instructions: Cellulitis (DC), Anemia (GEN) Referrals: W[facility] [Other] - 02/24/17 3:30 pm [facility] [Other] (The [facility] will call you with a date and time. Thank you) Dallin Grayson DPM [Partnered Physician] - 03/01/17 11:45 am (Patient will be seen in the Wound Care Clinic.) NONE,PCP [Primary Care Provider] - (Patient prefers to find his own primary care physician. Thank you) Prescriptions: Sulfamethoxazole/Trimeth DS [Bactrim DS] 1 each PO BID #20 tablet
[2017-02-22] MEDS ORDERED: Aminoglycoside Consult 1 EACH MC ONE (17:06)
--- NOTE | 2017-02-22 18:03 | Venous Imaging Report ---
LE Venous Duplex Patient Name:Meliton Landaverde Order Number:[id number] Procedure Date:02/21/2017 Date:1950ge:66 yrs Gender:Male Location:[facility] Room #: 2A42 Activated Sludge Operator:Luis Jacobson Referring MD:Day Sesay CNP storekeeper engineering:None Reading MD:Lamont Waite MD , FACS Primary Indications:Lower extremity swelling Secondary Indications: Impressions: Bilateral lower extremity: normal superficial and deep exam. Findings Venous Duplex Results: Right: The right popliteal vein was not well visualized. Lower Extremity Venous Duplex Side Vein Compress Spontaneous Flow Augment Diameter (cm) Depth (cm) Left Great Saphenous Normal Yes Phasic Yes Left Lesser Saphenous Normal Yes Phasic Yes Right Distal Iliac Normal Yes Phasic Yes Right Common Femoral Normal Yes Phasic Yes Right Superficial Femoral Normal Yes Phasic Yes Right Popliteal Normal Yes Phasic Yes Right Posterior Tibial Normal Yes Phasic Yes Right Peroneal Normal Yes Phasic Yes Right Saphenofemoral [place] Normal Yes Phasic Yes Right Great Saphenous Normal Yes Phasic Yes Right Lesser Saphenous Normal Yes Phasic Yes Left Distal Iliac Normal Yes Phasic Yes Left Common Femoral Normal Yes Phasic Yes Left Superficial Femoral Normal Yes Phasic Yes Left Popliteal Normal Yes Phasic Yes Left Posterior Tibial Normal Yes Phasic Yes Left Peroneal Normal Yes Phasic Yes Left Saphenofemoral [place] Normal Yes Phasic Yes Updated by Lamont Waite MD, FACS on 02/22/2017 5:57:40 PM Lamont Waite MD electronically signed on 02/22/2017 5:58:04 PM with status of Final
== END 2017-02-22 17:07 | disposition home or self-care (01) ==
LOC: EMEROO 15:50 → 3ANU 15:50
PROVIDERS: ADMIT Family Medicine; ATTEND Internal Medicine